=== PATIENT | male | born 1955 | race Caucasian/White ===

== ENCOUNTER → 2025-01-28 | Outpatient (CLI) | payer MEDICARE, MEDICAID, SELFPAY ==
--- NOTE | 2025-01-28 09:00 | XR_ITS ---
Examination: Diagnostic digital mammography, bilateral Computer aided detection 3-D breast Tomosynthesis, bilateral Date and time of exam: January 28, 2025 0913 hours Compared to mammograms dating to February 25, 2018 Technique: Nonmagnified MLO, CC views of the breasts to been obtained, reconstructed from 3-D Tomosynthesis images. R2 computer aided detection program utilized for evaluation of suspicious masses and/or abnormal calcifications. 3-D Tomosynthesis images obtained. Findings: Scattered areas of fibroglandular density Retroareolar glandular tissue Impression: BI-RADS Category 2: Benign findings.
--- NOTE | 2025-01-28 09:30 | XR_ITS ---
Examination: Breast ultrasound complete, bilateral Date and time of exam: January 28, 2025 0857 hours INDICATIONS: Patient states palpable lumps in the retroareolar regions breast one year, right breast retroareolar nodule 3.9 cm left breast retroareolar nodule 4.6 cm on breast sonogram July 03, 2024 Technique: Real-time grayscale ultrasonographic imaging bilateral breasts, including all 4 quadrants as well as nipple retroareolar and axillary regions. Findings: Sonographic images right and left breast demonstrated retroareolar glandular tissue no suspicious masses IMPRESSION: BI-RADS Category 2: Benign findings
== END | disposition home or self-care (01) ==
PROVIDERS: PCP Nurse Practitioner Family; Referring Provider Nurse Practitioner Family; Visit Provider Nurse Practitioner Family
DX: R92.323 Mammographic fibroglandular density, bilateral breasts (principal)
CPT/HCPCS: 76641; 77062; 77066; G0279